=== PATIENT | female | born 1950 | race Caucasian/White ===

== ENCOUNTER 2016-08-06 01:44 | Inpatient (IN) | payer MEDICARE, OTHER ==
[~2016-08-06] VITALS: Ht 165.1 cm; Wt 65.6 kg
--- NOTE | ~2016-08-06 | CATH ---
Cardiac Diagnostic Report Demographics Patient Name MOY Huizar Gender Female Date of 1950 Age 66 year(s) Patient Number [id number] Date of Study 08/07/2016 Visit Number [id number] Room Number G6[address] [place] [id number] Ht 165.1 cm Wt 65.6 kg Referring Chema Rodriguez Primary Physician Physician Performing Marycruz Secondary Physician Physician Minnie TAYLOR Diagnostic [facility] Assisting Physician Physician Minnie TAYLOR Interventional Physician Home Health Specialist Physician Findings and Conclusions Diagnostic Findings and Conclusion 1. Single vessel CAD, ostial RCA UNDERWRITING MANAGER. 2. UNDERWRITING MANAGER of ostial RCA with robust collaterals from left system (known since 2006). 3. OM1 stent patent. Diagnostic Recommendations Continue current medications. Aggressive medical therapy for coronary artery disease. Dual Anti-platelet therapy for 1 year given NSTEMI with elevated cardiac enzymes. Smoking Cessation. Referral to Cardiac Rehabilitation after discharge . Hydration and followup creatinine. Patient has been instructed to not lift anything more than 5 pounds for 1 week. Procedure Description The patient was brought to the diagnostic cardiac catheterization-EP laboratory in the fasting, non-sedated state. Informed consent was obtained in the written and verbal form after the risks and benefits were explained. The patient had no further questions and agreed to proceed. The planned puncture-incision site(s) were shaved and prepped with ChloraPrep and draped in the usual sterile manner. Conscious sedation, supplemental oxygen, and pain control medications were delivered by a registered nurse under physician guidance. Surface ECG rhythm, blood pressure measurement, and pulse oximetry were monitored throughout the procedure. Arterial access. The access site was infiltrated with lidocaine. The vessel was entered with the Seldinger technique. A sheath was advanced into the vessel and used for catheter placement. Selective left coronary angiography. A catheter was advanced into the left coronary vessel ostium under Fluoroscopic guidance. Contrast was injected by hand. Images were obtained in multiple projections. Selective right coronary angiography. A catheter was advanced into the right coronary vessel ostium under fluoroscopic guidance. Contrast was injected by hand. Images were obtained in multiple projections. Left heart catheterization. A catheter was advanced across the aortic valve to the left ventricle under fluoroscopic guidance. Resting hemodynamics were obtained. Arterial artery hemostasis was achieved. The patient was transferred to a regular nursing floor via cart accompanied by a nurse. The patient left the laboratory in stable condition. Diagnostic Cath Status: Urgent Procedure Procedure Type Diagnostic procedure:Angiography:, Coronary Angios /[facility] Indications: Elevated cardiac enzymes and Non-ST elevation TX. The procedure was explained in detail to the patient. Risks, complications and alternative treatments were reviewed. Written consent was obtained. Medications Reviewed with Patient prior to Procedure. Angiographic Findings Dominance: Right Cardiac Arteries and Lesion Findings LMCA: Normal (0% Stenosis). LAD: Multiple stenosis.Diag small. Lesion on Prox LAD: Proximal subsection.20% stenosis . Lesion on 1st Diag: Ostial.30% stenosis . LCx: Aneurysmal.There is a previous stent on 1st Ob [place] showing wide patency. RCA: Chronic occlusion.Collaterals from left system fill back to mid RCA. Lesion on Prox RCA: Ostial.100% stenosis .Chronic total occlusion. Coronary Tree Procedure Data Procedure Date Date: 08/07/2016Start: 10:00 AMEnd: 10:20 AM Entry Locations - Retrograde Percutaneous access was performed through the Right Radial artery (Primary location). A 6 Fr sheath was inserted. Hemostasis was successfully obtained using Mechanical Compression. Closure Comments: 19 ml in R. Band by Sonam Tierney. . Procedure Medications Order and Administration + + + + + !Time !Medication !Dosage !Route ! + + + + + !08/07/2016 09:56 AM !Fentanyl !25 mcg !I.V. ! + + + + + !08/07/2016 10:01 AM !Fentanyl !25 mcg !I.V. ! + + + + + !08/07/2016 10:03 AM !Radial Verapamil !2.5 mg !I.A. ! + + + + + !08/07/2016 09:59 AM !Versed !1 mg !I.V. ! + + + + + !08/07/2016 10:05 AM !Heparin (ACC_3) !5000 units !I.V. bolus ! + + + + + !08/07/2016 10:09 AM !Oxygen !2 l/min !NC ! + + + + + Devices Used - A5 Fr. BS JR 4 Diag. Catheterwas used for:Right coronary angiography. - A5 Fr. BS JL 3.5 Diag. Catheterwas used for:Left coronary angiography. Contrast Material - Isovue 05880 ml Fluoroscopy Time: Diagnostic: 2:12 minutes. Total: 2:12 minutes. Fluoroscopy Dose: Diagnostic: 707 mGy. Total: 707 mGy. Estimated Blood Loss: 10 ml. Medical History Allergies - Sulfa. - Other:(sporanox). Risk Factors The patient risk factors include:prior PCI on 08/05/2006;cerebrovascular disease, physical activity, treated hypercholesterolemia, treated hypertension, insulin-treated diabetes mellitus, chronic lung disease, last creatinine: 0.6 mg/dl, creatinine clearance: 95.51 ml/min, dyslipidemia, renal failure, Current/Recent(w/in 1 year) tobacco use and prior [place] . Admission Data Admission Date: 08/06/2016 Admission Time: 02:30 AM Admit Source: Transfer acute care facility Insurance Payors: Medicare. Admission Medications + +------+-------+ + + + + !Medication!Dosage!Times !Last !Last !Administered !Comments ! ! ! !Per Day!Delivery !Delivery ! ! ! ! ! ! !Date !Time ! ! ! + +------+-------+ + + + + !Aspirin ! ! ! ! ! ! ! !(any) ! ! ! ! ! ! ! + +------+-------+ + + + + !Statin ! ! ! ! ! ! ! !(any) ! ! ! ! ! ! ! + +------+-------+ + + + + !ARB (any) ! ! ! ! ! ! ! + +------+-------+ + + + + Clinical Evaluation Leading to Procedure - The patient's CAD presentation was assessed as: Non-STEMI.The symptom onset was first noted on 08/06/2016 12:00 PM(time was estimated). - There were no anginal symptoms. Anti-anginal medications were prescribed during the past two weeks. The medication is: Ca channel Blockers. - The patient has been in a state of heart failure within the past two weeks. - The patient's heart failure status was assessed as NYHA Class III, with CHF symptoms of BEAL. Hemodynamics Condition: Rest O2 Consumption: Estimated: 154.61Heart Rate: 61 bpm Pressures (mmHg) +-----+ + !Site !Pressure ! +-----+ + !LV !143/7 ,18 ! +-----+ + !LV !141/7 ,18 ! +-----+ + !AO !136/64 (91) ! +-----+ + !LV !140/7 ,18 ! +-----+ + !AO !135/59 (88) ! +-----+ + !AO !11/-7 (-2) ! +-----+ + Valve Gradients and Areas + +---------+---------+---------+ +---------+ + !Valve !Peak !Mean !Area !Index !Flow !Source ! + +---------+---------+---------+ +---------+ + !Aortic !5 !9 ! ! ! ! ! + +---------+---------+---------+ +---------+ + !Aortic !5 !9 ! ! ! ! ! + +---------+---------+---------+ +---------+ + Shunts Oxygen Values O2 Capacity 189.04 O2 Consumption 154.61 Signatures dtt: MINNIE BUTLER dtd: 08/07/16 [facility] Physician Self Edit
--- NOTE | ~2016-08-06 | CON ---
PATIENT'S NAME: EDILMA WINTER [facility] AGE: 66 Y [address] ROOM: G6[address] [place], [place] [address] LOCATION: GPCU ADMIT DATE: 08/06/2016 Consultation DISCHARGE DATE: FAMILY PHYSICIAN: Sury Bear APRN ATTENDING PHYSICIAN: CHENG HUGGINS DATE OF CONSULTATION: 08/06/2016 REFERRING PHYSICIAN: BRENNA BUTLER MD CARDIOLOGY CONSULTATION REPORT REASON FOR CONSULTATION: Elevated troponin/non-STEMI. CHIEF COMPLAINT: Left-sided toothache/jaw pain and lethargy. HISTORY OF PRESENTING ILLNESS: The patient is a very pleasant, 66-year-old, who has known coronary artery disease status post PCI in the past several years ago by Dr. Magdaleno in 2006 to OM1 branch in setting of MA. She has not seen him recently though. The patient reports she has had three cardiac catheterizations and the last time about 10 years ago, she had a PCI done in 2006. She had OPTICAL TECHNICIAN of ostial RCA, stent to OM, collaterals to RCA. She really has not had any issues with her heart in the recent past. She has been battling with low back pain and had multiple surgeries for that. She was on narcotics. She also has been having complaints with left toothache in the recent past and has been trying to get in touch with her dentist. She takes 1 tablet of hydromorphone 32 mg in the morning and 4 tablets of Lortab a day. In the past few days, she has just been feeling very sleepy and drowsy, and she has not been sleeping well in the night though. She was feeling very tired and fatigued the night before admission, and her was having difficulty arousing her, and finally, she went to her local emergency room in [place] and she was difficult to arouse. She got Narcan and she did have significant improvement since that time. She is a very poor historian. However, she is awake and alert, and able to answer most of my questions appropriately this morning. Upon arrival to our ER, apparently, she had pinpoint pupils and they did improve after she got another dose of Narcan here. Her O2 sats were only 75% on the room air there. She uses 4 L of oxygen at night at home. She continues to smoke a pack per day. She has chronic bronchitis with yellow sputum production, but that is not worse than her usual and her cough is also similar. PATIENT'S NAME: EDILMA WINTER [facility] AGE: 66 Y [address] ROOM: [place] [address] LOCATION: GPCU ADMIT DATE: 08/06/2016 Consultation DISCHARGE DATE: FAMILY PHYSICIAN: Sury Bear APRN ATTENDING PHYSICIAN: CHENG HUGGINS She has not been having any fever or chills. Chest x-ray from the outside hospital showed bibasilar infiltrates that was read by the radiologist there. She was hypotensive when she came in here, and there was question about severe sepsis. She did have her left lower tooth pulled about two months ago and she has been having pain in that area. REVIEW OF SYSTEMS: A 10-point review of systems was discussed with the patient. Pertinent positives and negatives mentioned in the History of Presenting Illness. PAST MEDICAL HISTORY: 1. History of MA in the past and status post PCI about 10 years ago. s/p PCI of OM1 branch, OPTICAL TECHNICIAN of RCA ostial, with collaterals from left systtem 2. Hyperlipidemia. 3. Oxygen-dependent COPD. She is on 4 L of oxygen at night. 4. Hypertension. 5. Chronic low back pain. 6. Tooth pain. ALLERGIES: SULFA. HOME MEDICATIONS: Please review MAR. SOCIAL HISTORY: She smokes one pack per day for several years. She continues to do so. No illicit drug abuse or alcohol abuse. FAMILY HISTORY: No premature coronary artery disease or sudden cardiac . PAST SURGICAL HISTORY: 1. Appendectomy. 2. Multiple lower back surgeries. 3. Tooth extraction. PHYSICAL EXAMINATION: VITAL SIGNS: O2 saturations 94% on 2 L of oxygen. She is afebrile. Blood pressure is 130/80, heart rate is in the 90s, and respirations 16. Telemetry; normal sinus rhythm. GENERAL APPEARANCE: She is alert and oriented. She does answer questions appropriately. However, she is a poor historian. She is not in any apparent distress. HEENT: Extraocular movements are intact. Head is atraumatic. PATIENT'S NAME: EDILMA WINTER [facility] AGE: 66 Y [address] ROOM: [place] [address] LOCATION: GPCU ADMIT DATE: 08/06/2016 Consultation DISCHARGE DATE: FAMILY PHYSICIAN: Sury Bear APRN ATTENDING PHYSICIAN: CHENG HUGGINS NECK: Supple. No JVD. HEART: S1 and S2. Regular rate and rhythm. No murmurs, gallops, or rubs. RESPIRATORY: Decreased air exchange bilaterally. No crackles or wheezing. ABDOMEN: Obese. Soft. Bowel sounds positive. EXTREMITIES: No lower extremity edema. NEUROLOGIC: Grossly intact. Able to move all extremities against gravity. SKIN: Warm and dry. MUSCULOSKELETAL: No joint or muscle aches. IMAGING STUDIES: 1. EKG; normal sinus rhythm, intraventricular conduction delay with T-wave inversions in the inferior leads. 2. Echocardiogram; normal LV size and systolic function. LVEF of 60%. Normal wall motion, moderate mitral annular calcification, dilated IVC suggestive of elevated right atrial pressure, trivial TR, and no pericardial effusion. LABORATORY DATA: Her pH is 7.36, pCO2 of 55, pO2 of 72, and percent saturation of 94%. Upon arrival here, sodium 145, potassium 3.8, BUN 11, 0.7 is the creatinine, albumin 2.4, bilirubin 0.5, alkaline phosphatase 119, AST 163, ALT 80, and GFR greater than 60. LDL is 44, triglycerides are 61, and cholesterol is 94. CPK 3410, next at this morning 2766, CK-MB is 12.3 and 12.1, troponin 2.4 and 1.8, and proBNP is elevated at 4843. A1c is 7. Amylase 58, lipase 22. WBC 15.1, H and H are 14.5 and 44.5, and platelets are 198,000. She had a CT scan of her brain and that did not show any acute findings. IMPRESSION AND PLAN: 1. [id number] myocardial infarction with significantly elevated cardiac biomarkers with TWI in inferior leads. 2. Acute encephalopathy likely secondary to narcotic use that has resolved essentially after Narcan. 3. Chronic obstructive pulmonary disease with increased O2 requirement. 4. Congestive heart failure exacerbation. Mild volume overload with predominantly diastolic dysfunction and diastolic heart failure. 5. Questionable sepsis. She is on broad-spectrum antibiotics at this time. 6. Transaminitis. This could be secondary to congestive heart failure exacerbation as well as her acute coronary syndrome. I do agree with heparin for acute coronary syndrome protocol given her significantly elevated cardiac biomarkers and history of myocardial infarction in the past. I think given her significantly elevated cardiac enzymes and given her poor history, at this PATIENT'S NAME: EDILMA WINTER [facility] AGE: 66 Y [address] ROOM: G[address] [place], [place] [address] [facility] ADMIT DATE: 08/06/2016 Consultation DISCHARGE DATE: FAMILY PHYSICIAN: Sury Bear APRN ATTENDING PHYSICIAN: CHENG HUGGINS time, the best thing would probably be a cardiac catheterization to ensure she does not have any significant obstructive coronary artery disease given the clinical settings. Continue to optimize her medications in the interim. Risks and benefits were explained with the patient, and we will plan for catheterization in the morning. Hopefully, she does not have any other sepsis or other issues brewing. We will have hospitalist evaluate that as well and if okay, we will proceed with catheterization in the morning. Thank you very much for the consultation. BRENNA BUTLER MD AT/modl /[id number] d: 08/06/16 1407 t: 08/07/16 1209, CONSULTATION REPORT
--- NOTE | ~2016-08-06 | HP ---
PATIENT'S NAME: EDILMA WINTER [facility] AGE: 66 Y [address] ROOM: [id number] [place], [place] [address] LOCATION: GPCU ADMIT DATE: 08/06/2016 History & Physical DISCHARGE DATE: FAMILY PHYSICIAN: PHYSICIAN, UNKNOWN ATTENDING PHYSICIAN: CHENG HUGGINS DATE OF SERVICE: CHIEF COMPLAINT: Left toothache, hypotension, and lethargy. HISTORY OF PRESENT ILLNESS: This is a 66-year-old female who is a poor historian and I got the story from the patient and the patient's at the bedside. The story is that she has a chronic lower back pain with multiple surgeries in the past chronically dependent on hydromorphone and also hydrocodone. She usually takes 1 tablet of the hydromorphone extended release 32 mg in the morning and also 4 tablets of the hydrocodone 7.5/200 mg 4 times a day. She states she might have taken more than she needed for the left toothache and also on the chronic lower back pain, but she could not really tell me how many tablets did she take actually. She states she took the tablets sometime around noontime and after that, the patient is starting to feel sleepy and drowsy and around 10:30 p.m., the found the patient to be very lethargic and barely responsive and was not really talking. Because of the lethargy and not really talking, the patient was brought to the ER at the outside facility for evaluation. From the ER physician from the outside facility, he told me that the patient was very drowsy. The patient got IV Narcan 0.4 mg 1 dose and the patient actually woke up and is more alert and awake and answering questions, but still remains a poor historian. On arrival over there, physician over there told me that she had pinpoint pupils and has improved to normal size after the Narcan 1 dose 0.4 mg. Her saturation was at the 75% on room air over there. Chronically, the patient has COPD and uses 4 L nasal cannula only at night. The patient got a few doses of nebulization because the patient was wheezing over there, but the patient denies any cough or any worsening shortness of breath. At baseline, her COPD she does have a daily chronic cough consistent with chronic bronchitis with yellowish sputum, but she denies any worsening shortness of breath or worsening cough. She absolutely denies any chest pain, palpitation or syncope or presyncope. The patient got a few nebulizations from the outside facility because of the wheezing and blood pressure on arrival over there was in the soft 100 and had around 1.5 L normal saline and the blood pressure improved to the 120s systolic. MAP was always more than 65. The patient also received nebulization and was feeling better afterwards. Chest x-ray from the outside facility physician mentioned that probably has some bibasilar infiltrate, but it was not compared to the prior chest x-ray and it was read by the physician, not by the radiologist. Outside PATIENT'S NAME: EDILMA WINTER [facility] AGE: 66 Y [address] ROOM: [address] [address] [facility] ADMIT DATE: 08/06/2016 History & Physical DISCHARGE DATE: FAMILY PHYSICIAN: PHYSICIAN, UNKNOWN ATTENDING PHYSICIAN: CHENG HUGGINS facility physician was concerned about severe sepsis with borderline hypotension in the setting of left toothache concerning for tooth abscess and also concerning for COPD exacerbation due to her wheezing. The patient was sent over here for further evaluation. The patient states that she had her left lower tooth pulled out about 2 months ago and has been having pain in that area for the last 2 months. She was put on clindamycin by her dentist, just started today, but the dentist has not seen the patient and is scheduled to see her sometime next week. She states that her left toothache is still there. REVIEW OF SYSTEMS: As mentioned in history of present illness. All other systems reviewed negative except those mentioned in history of present illness. PAST MEDICAL HISTORY: Per medical records, and per the patient, the patient has had: 1. History of myocardial infarction x3 in the past. Last time she had a myocardial infarction was many, many years ago according to the patient. The patient could not remember the exact year. The patient says that she was seen by Dr. Magdaleno in the past, but she could not remember all the details and she does not recall when was the last office visit. She states she has had one stent placed in the heart, but not sure when was that and not sure through which artery. She has not had a chest pain for a long time. 2. Hyperlipidemia. 3. COPD, on 4 L nasal cannula at night. 4. Hypertension. 5. Chronic lower back pain. 6. The patient denies any other past medical history. ALLERGIES: SULFA, BUT THE PATIENT COULD NOT REMEMBER WHAT REACTION. HOME MEDICATIONS: Will be reconciled in the morning with the pharmacy because the patient does not remember. SOCIAL HISTORY: The patient is active cigarette smoker about 1 pack per day for many years. The patient denies any alcohol or any illegal drug use. FAMILY HISTORY: Father from pneumonia at advanced age. Mother is healthy and alive according to the patient. She denies any coronary artery disease in the PATIENT'S NAME: EDILMA WINTER [facility] AGE: 66 Y [address] ROOM: [place] [address] [facility] ADMIT DATE: 08/06/2016 History & Physical DISCHARGE DATE: FAMILY PHYSICIAN: PHYSICIAN, UNKNOWN ATTENDING PHYSICIAN: CHENG HUGGINS. PAST SURGICAL HISTORY: 1. Status post cardiac stent x1 many years ago. 2. Status post appendectomy. 3. Status post multiple lower back surgery for chronic lower back pain. PHYSICAL EXAMINATION: VITAL SIGNS: Saturation 94% on 4 L nasal cannula, temperature 98, blood pressure 120/80, heart rate 90, respirations 16. GENERAL APPEARANCE: Alert and oriented x3. Answering questions appropriately, but is a poor historian. No acute distress. HEENT: Pupils are equally round and reactive to light. Extraocular muscles intact. Anicteric sclerae. Nasal turbinates are normal bilaterally. Moist oral mucosa. NECK: No JVD. CARDIOVASCULAR: Regular rate and rhythm. Normal S1, S2. No murmur, no rubs, no gallops. RESPIRATORY: Diffuse wheezing. No crackles, no rhonchi, no rales. ABDOMEN: Obese, soft, nontender, nondistended, normal bowel sounds, no hepatosplenomegaly. Bowel sounds are present. EXTREMITIES: No edema in upper or lower extremities. NEUROLOGICAL: Grossly nonfocal. SKIN: She does have Candidal intertrigo in bilateral groin area and below the right breast. She also has a small laceration and excoriation on the left frontal area of the head. She states she had a fall about 2 days ago, but she denies any loss of consciousness. NEUROLOGICAL: Grossly nonfocal. MUSCULOSKELETAL: No joint pain. No muscle pain. Range of motion intact. LABORATORY DATA: ABGs on 4 L nasal cannula showed pH of 7.35, pCO2 55, pO2 72, saturation 94%, and bicarbonate 31.1. Lactic acid 0.7, CPK 3410. Troponin 2.470. CK-MB 12.3, white blood cells 14.1, hemoglobin 14.4, hematocrit 44.1, platelets 204, glucose 150, BUN 14, creatinine 0.8. Sodium 142, potassium 3.2, chloride 108, carbon dioxide 26, calcium 7.9. Total protein 6.6, albumin 2.4, AST 190, ALT 87, alkaline phosphatase 114, total bilirubin 0.6, direct bilirubin 0.3, anion gap 11.2, GFR more than 60. Globulin 4.2, A1c 7.0, INR 1.14, PTT 34. CK-MB 12.3. Procalcitonin pending. EKG on admission here on August 06, 2016, at 3:34 a.m., heart rate of 78 sinus rhythm. There is T-inversion in the inferior leads and leads III. No prior EKG for comparison. No ST elevation and no ST depression. IA 182 milliseconds, QRS 109 milliseconds, QTc 441 milliseconds. Again, no prior EKG for comparison. PATIENT'S NAME: EDILMA WINTER [facility] AGE: 66 Y [address] ROOM: [place] [address] [facility] ADMIT DATE: 08/06/2016 History & Physical DISCHARGE DATE: FAMILY PHYSICIAN: PHYSICIAN, UNKNOWN ATTENDING PHYSICIAN: CHENG HUGGINS Chest x-ray has just been ordered. Chest x-ray from an outside facility will be requested to push to PAC. CT of the brain without contrast and also CT of the soft tissue and the neck to evaluate tooth abscess currently is pending and has been taken right now. ASSESSMENT AND PLAN: 1. Regarding her acute encephalopathy: Likely from narcotic induced. The patient did improve after Narcan one dose from outside facility. For now, the patient is alert and awake. I am not going to give more Narcan. I will hold the narcotics for now and reassess in the morning. To prevent narcotic withdrawal, it can be reintroduced slowly at the lower dose to prevent withdrawal, but for now, she is just waking up from the Narcan. I will hold her narcotics for now. Home medications will be addressed in the morning because it has to be verified with the pharmacy. 2. Regarding her chronic obstructive pulmonary disease exacerbation: Questionable pneumonia. X-ray will be taken right now. She does have wheezing. I will treat her with IV Levaquin since she came from home for CAP coverage. Continue with nebulization with Xopenex and Atrovent and also Xopenex p.r.n. We will be getting steroids, getting IV Solu- Medrol 125 mg IV x1 right now and then prednisone 40 mg b.i.d. We will be getting a urine antigen and Legionella for pneumococcal. Get a sputum culture and gram stain. We will also be checking an influenza nasal antigen swab. X-rays will be performed and will be read by our radiologist in the morning. 3. Regarding her troponin elevation: The patient does have elevation of troponin and CPK and CK-MB. The patient has a history of 3 myocardial infarction in the past many years ago. She had one stent in the heart placed many years ago according to the patient. The patient is a poor historian, cannot even tell me much information. The patient states she had been seen by Dr. Magdaleno in the past, but could not remember when was the last visit. The patient is chest pain-free. I will treat her with [id number] elevation myocardial infarction because she does have a T inversion on the inferior leads, but no prior EKG for comparison. Treat her with IV heparin bolus followed by drip with ACS protocol and also Lipitor 80 mg p.o. now and then daily and aspirin full dose, not on 81 mg daily and also if she has chest pain, we will start nitroglycerin drip. I will not give the beta-omaira, because her blood pressure was soft on arrival. I will also be getting an echo in the morning and also cycle enzymes every 6 hours. EKG in the morning again. ProBNP will be checked in the morning again. Consult Dr. Magdaleno because Dr. Magdaleno has seen the patient before. I will consult Cardiology in the morning. N.p.o. for the patient, in case the patient PATIENT'S NAME: EDILMA WINTER [facility] AGE: 66 Y [address] ROOM: [place] [address] [facility] ADMIT DATE: 08/06/2016 History & Physical DISCHARGE DATE: FAMILY PHYSICIAN: PHYSICIAN, UNKNOWN ATTENDING PHYSICIAN: CHENG HUGGINS will require stress test or cardiac cath. Pending cardiology evaluation in the morning. 4. Regarding her possible severe sepsis with hypotension from possible and questionable left tooth abscess: I will be getting a CT of the head without contrast, because she fell 2 days ago and also I will be getting a CT of the face with a soft tissue and neck to rule out left tooth abscess or infection. I will cover her empirically with IV Unasyn, which is good coverage for dental abscess and soft tissue infection. IV Unasyn will be given 3 g IV every 6 hours. Further plan depends on the CT report. We will be giving her Florastor 250 mg p.o. b.i.d. to prevent Clostridium difficile colitis from antibiotics. 5. Regarding her transaminitis: We will trend the liver function tomorrow again. No pain in the abdomen. A1c is high with 7.0, which made her diabetic: She denies any diabetes. This could be new onset. I will put her n.p.o. right now because the cardiac enzymes are high. We will give her subcu regular insulin low dose q.6 hours and titrate as necessary. 6. Regarding her hypokalemia: Replace with p.o. potassium to keep potassium more than 4. We will check her magnesium to keep it above 2. I will also be checking a urine drug screen because she was lethargic to make sure there is no illegal drugs taken. 7. Deep vein thrombosis prophylaxis: She will be on heparin drip. 8. She is a DO NOT RESUSCITATE/DO NOT INTUBATE. Time spent on the day of admission 50 minutes including chart review, interviewing the patient, talking to the patient, examining the patient, and addressing all the questions and concerns the patient had and went over the plan of care in detail with the patient and the patient's . Further plan depend son clinical course and by medical provider who will be taking over the care on 08/06/16 at 8 AM when shift changes. CHENG HUGGINS MD CC/wesly /[id number] T: [id number] HISTORY & PHYSICAL
--- NOTE | ~2016-08-06 | ECHO ---
Transthoracic Echocardiography Report (TTE) Demographics Patient Name EDILMA WINTER Date of Study 08/06/2016 Patient Number [id number] Visit Number [id number] Date of 1950 Room Number G6306 Accession Number [id number] Gender Female Age 66 year(s) Referring Lita Kaur MD Pigment And Lacquer Mixer Apurva Moe [facility] Physician Matthew Hudson Physician Interpreting Sharla Balbuena Contact Lens Assistant Physician Supervising Ordering Physician Lita Kaur MD, MD/P Nurse Stress Building Maintenance Custodian Conclusions Contractility Score Summary Normal Left Ventricular contractility was noted. Summary The estimated left ventricular ejection fraction is 60% with normal WM.The left ventricle is normal in size .Mild to moderate concentric left ventricular hypertrophy. Moderate mitral annular calcification. The aortic valve is moderately sclerotic. Dilated IVC with poor inspiratory collapse consistent with elevated RA pressure. Trivial tricuspid regurgitation by color Doppler. Procedure Type of Study TTE procedure:2D Echocardiogram, M-Mode, Doppler , Color Doppler. Procedure Date Date: 08/06/2016 Start: 07:09 AM Study Location: Inpatient Portable Technical Quality: Adequate visualization Indications:Elevated Troponin and Coronary artery disease. Appropriate Use Criteria: 9 Patient Status: Routine HR: 72 bpm BP: 116/63 mmHg M-Mode/2D Measurements LV Diastolic Dimension: 3.95 cm LV Systolic Dimension: 2.69 cm LV Septum Diastolic: 1.32 cm LV PW Diastolic: 1.27 cm AO Root Dimension: 2.4 cm Cardiac Output: 5.16 l/min LA Dimension: 60 cm LVOT: 1.8 cm LVOT VTI: 28.2 cm RV Base: 4.27 cm LV Stroke volume: 71.72 ml RV Length: 5.98 cm TAPSE: 2.56 cm TDI-S': 12.7 cm/s Doppler Measurements AV Peak Velocity: 2.22 m/s MV Peak E-Wave: 0.77 m/s AV Peak Gradient: 19.71 mmHg MV Peak A-Wave: 0.99 m/s AV Mean Gradient: 12 mmHg MV E/A Ratio: 0.78 LVOT Peak Velocity: 1.23 m/s MV Deceleration Time: 180 msec TR Velocity:1.68 m/s PV Peak Velocity: 1.14 m/s TR Gradient:11.29 mmHg PV Peak Gradient: 5.2 mmHg Estimated RAP:15 mmHg Estimated PASP: 26.29 mmHg Estimated RVSP: 26 mmHg A' Septal Velocity: 0.07 m/s E' Septal Velocity: 0.06 m/s A' Lateral Velocity: 0.1 m/s E' Lateral Velocity: 0.07 m/s Findings Left Ventricle The left ventricle is normal in size .Mild to moderate concentric left ventricular hypertrophy.LVEF:60%.Normal WM. Right Ventricle Normal right ventricle structure and function. Left Atrium Normal left atrial size. Right Atrium Normal right atrial size. Dilated IVC with poor inspiratory collapse consistent with elevated RA pressure. Mitral Valve Moderate mitral annular calcification. Calcified posterior mitral valve leaflet. Aortic Valve The aortic valve is moderately sclerotic. Tricuspid Valve Trivial tricuspid regurgitation by color Doppler. Pulmonic Valve Trivial pulmonic valve regurgitation by color Doppler. Pericardial Effusion No evidence of pericardial effusion. Miscellaneous Visualized portions of the aortic root and ascending aorta appear normal in size. Pleural Effusion No evidence of pleural effusion. Contractility Score LV regional wall motion:(0-Non visualized 1-Normal 2-Hypokinesis 3-Akinesis 4-Dyskinesis 5-Aneurysm) Signature dtt: Esha Magdaleno dtd: 08/06/16 0709 Physician Self Edit
--- NOTE | ~2016-08-06 | DS ---
PATIENT'S NAME: [facility] AGE: 66 Y [address] ROOM: [place] [address] LOCATION: GPCU ADMIT DATE: 08/06/2016 Discharge Summary DISCHARGE DATE: 08/07/2016 FAMILY PHYSICIAN: Sury Bear APRN ATTENDING PHYSICIAN: Jason London ATTENDING PHYSICIAN: Mark Harrell MD FINAL DIAGNOSES: 1. Altered mental status, resolved. 2. Non-ST elevation myocardial infarction. 3. status post catheterization. 4. Chronic back pain. 5. Chronic lung opacity. 6. Chronic obstructive pulmonary disease exacerbation. 7. Acute hypoxic respiratory failure, resolved. 8. Diabetes mellitus. 9. Hypertension. 10. Acute on chronic diastolic congestive heart failure. 11. Left tooth abscess. CONSULTATIONS: 1. Maxillofacial surgery, Dr. Mcbride. 2. Cardiology, Dr. Cardenas. PROCEDURES: Left heart catheterization with Dr. Cardenas. REASON FOR ADMISSION: This is a 66-year-old female, who was brought in for left toothache, hypotension, and lethargy. The patient was evaluated in the ER and was thought to have NSTEMI and acute encephalopathy, likely narcotic induced. Please see Dr. London's admission H and P for further details. DIAGNOSTIC STUDIES: Transthoracic echocardiogram was done during this admission, that showed normal left ventricular contractility, ejection fraction of 60% with normal wall motion, left ventricle normal in size, mild to moderate concentric left ventricular hypertrophy noted with moderate mitral annular calcification, aortic valve is moderately sclerotic, dilated IVC with poor inspiratory collapse consistent with elevated RA pressure was detected, trivial tricuspid regurgitation was noted. The patient underwent heart catheterization with Dr. Cardenas, that showed single-vessel CAD, ostial RCA CLAIMS ASSISTANT. CLAIMS ASSISTANT of the ostial RCA with robust collaterals from left system were noted and were known since 2006. OM1 stent was patent. Medical management with dual- antiplatelet therapy for 1 year was recommended. ABG was done on admission showed a pH of 7.36, pCO2 of 55, pO2 of 72, lactate PATIENT'S NAME: [facility] AGE: 66 Y [address] ROOM: [place] [address] LOCATION: GPCU ADMIT DATE: 08/06/2016 Discharge Summary DISCHARGE DATE: 08/07/2016 FAMILY PHYSICIAN: Sury Bear TRANSPORTATION ENGINEERING TECHNICIAN ATTENDING PHYSICIAN: Jason London 0.7 on admission, subsequently was 2.3. Serial Accu-Cheks were done and were in the range of 105 to 167. CPK elevated 3410 on admission, subsequently was trending down and was 1141. Troponin I 2.47 on admission and subsequently was 1.06. ProBNP 4843. Serial CBCs were done. White count was 14.1 on admission. She was placed on broad-spectrum antibiotics. White count at the time of discharge was stable at 13.4, hemoglobin, hematocrit, and platelet levels were within normal range. Serial CMPs showed essentially normal electrolytes. Her potassium was 3.2 on admission, was supplemented potassium, on the day of discharge was 3.3, and was supplemented prior to discharge. Kidney function tests were normal. Liver function tests showed elevated AST 190 on admission, 163 at discharge; ALT 87 on admission, 88 on discharge; total bilirubin level was within normal range. Hemoglobin A1c 7.0. Lipid panel was done showed a total cholesterol 94, triglycerides 61, HDL 38, LDL 44. The patient was placed on a heparin drip briefly, and that was monitored with PTT levels. INR 1.14 on admission and 1.25 subsequently. UA showed few bacteria and moderate wbc clumps. Urine drug screen was positive for barbiturates and opiates. Procalcitonin level 7.9 and subsequently was 8.17. Influenza A and B tests were negative. CK-MB 12.3, and subsequently was trending down to 9.2. Acetaminophen level less than 2.0, salicylate level seven 7.[address] head with no contrast was done for lethargy on admission and showed normal CT scan of the head, right maxillary sinus with inspissated mucus was noted. The patient had lower tooth abscess on the left side, and CT neck with contrast was done and showed no soft tissue abscess, equivocal evidence for left posterior bone abnormality at mandible was noted. The patient underwent repeat chest x-ray for dyspnea, and that showed a history of COPD and likely chronic bronchitis but no acute findings. CT chest PE protocol was done and showed no PE, patchy ground-glass opacities in the upper and lower lobes were noted. Differential included inflammatory process or pneumonitis and allergic alveolitis, likely also chronic lung process. Findings were also seen on the previous CT chest. The patient underwent CT abdomen and pelvis with contrast for increased LFTs, and that showed patchy ground-glass opacities in the lower lungs, cholelithiasis without ductal dilatation was noted, otherwise, negative upper abdomen. Negative lower abdomen and pelvis with the uterus surgically absent were detected. Urine Legionella antigen in urine negative. Strep pneumo antigen in urine negative. Urine culture showed contaminant and was negative. Blood culture showed no growth. HOSPITAL COURSE: This is a 66-year-old female, who presented with lethargy, altered mental status, and left toothache and hypotension. The patient was admitted for further evaluation and management. For her lethargy and acute encephalopathy, this was likely thought to be narcotic induced. The patient's PATIENT'S NAME: [facility] AGE: 66 Y [address] ROOM: [id number] [place], [place] [address] LOCATION: GPCU ADMIT DATE: 08/06/2016 Discharge Summary DISCHARGE DATE: 08/07/2016 FAMILY PHYSICIAN: Sury Bear APRN ATTENDING PHYSICIAN: Jason London narcotics were held. She woke up subsequently. She was following all commands. The patient had a history of chronic obstructive pulmonary disease. This was thought to be likely exacerbation. CT chest PE protocol was negative. She was treated with IV Levaquin and also given breathing treatments. She was also given steroid doses during this admission. Sputum culture was to be obtained, but could not be obtained since the patient did not bring up much sputum. Influenza test was negative. The patient had NSTEMI. Cardiology was consulted. She underwent catheterization and findings are as above. Medical management was then recommended. The patient did not receive any stents. The patient also had a left tooth abscess. Her white count was elevated. She was also slightly hypotensive. She responded to a fluid challenge. Dr. Mcbride was consulted after a CT neck was done. Dr. Mcbride recommended follow up with a dentist. The patient was placed on antibiotics for her toothache. The patient has transaminitis. This was likely secondary to cholelithiasis. CT abdomen and pelvis was done and findings are as above. The patient was also hypokalemic during this admission and was supplemented with potassium. The patient was recommended further stay in the hospital; however, she was very anxious and was refusing all treatment. She had also refused her cath but was later convinced by her to undergo cardiac catheterization. Since the patient was refusing all treatments and therapies, she was discharged and asked to follow up with her primary care physician. The patient was doing well at the time of discharge and tolerating p.o. and ambulating. DISCHARGE INSTRUCTIONS: The patient discharged on a cardiac diet. The patient to follow risk precautions for her catheterization. Follow up with dentist of choice in 2-3 days' time. Follow up with Sury Bear in [place] in 2 to 3 days time on Wednesday08/10/2016. PCP to check a CBC and a BMP. Accu- Cheks a.c. and h.s. advised. Regular BP check advised. Follow up with dentist in 2 to 3 days for tooth extraction. Follow up ER if fever, dyspnea, or pain returns or worsens. O2 as needed to keep sats 88%-95%. The patient uses just 2-3 L O2 at h.s. and p.r.n. during the day. She has home O2. DISCHARGE MEDICATIONS: 1. Clindamycin 300 mg p.o. q.6 hours for 7 days. 2. Aspirin 81 mg p.o. daily. 3. Catapres 0.1 mg p.o. q.h.s. 4. Plavix 75 mg p.o. daily. 5. Diltiazem ER 120 mg p.o. b.i.d. PATIENT'S NAME: [facility] AGE: 66 Y [address] ROOM: [place] [address] [facility] ADMIT DATE: 08/06/2016 Discharge Summary DISCHARGE DATE: 08/07/2016 FAMILY PHYSICIAN: Sury Bear APRN ATTENDING PHYSICIAN: Jason London 6. Guaifenesin 400 mg p.o. b.i.d. 7. Lamictal 300 mg p.o. q.h.s. 8. Cozaar 50 mg p.o. daily. 9. Singulair 10 mg p.o. q.a.m. 10. Fosamax 70 mg p.o. q.7 day every Wednesday night. 11. Multivitamin 1 tablet p.o. daily. 12. Potassium chloride 20 mEq p.o. q.h.s., PCP to manage based on BMP. 13. Os-Emile with D 1 tablet p.o. daily. 14. Primidone 250 mg p.o. b.i.d. 15. Lyrica 150 mg p.o. daily. 16. Crestor 40 mg p.o. daily. 17. Zoloft 100 mg p.o. q.h.s. 18. Florastor 250 mg p.o. b.i.d. for 10 days. 19. Demadex 20 mg p.o. daily. 20. Symbicort 160/4.5 mg inhalation 2 puffs inhalation twice daily. 21. Vitamin B complex 1 tablet p.o. daily. 22. Nitrostat 0.4 mg sublingual as needed p.r.n. chest pain. 23. Oxygen, uses 2-3 L O2 at h.s. and p.r.n. during the day, keep sats 88%- 95%. 24. Hydrocodone and ibuprofen 2 tabs p.o. daily per home regimen. 25. Allergy Relief loratadine 10 mg p.o. daily. 26. Levaquin 500 mg p.o. daily for 5 days. 27. Prednisone 20 mg p.o. b.i.d. for 2 days, then prednisone 10 mg p.o. b.i.d. for 2 days, and prednisone 5 mg p.o. b.i.d. for 2 days, then prednisone 5 mg p.o. daily for 2 days, then stop prednisone, stop date 08/15/2016. 28. During this admission, the patient's narcotic medications were stopped secondary to lethargy and altered mental status. Antibiotics and steroid taper were added during this admission. MARK HARRELL MD MT/wesly /[id number] CC: Sury Bear APRN d: 08/11/16 0357 t: 08/23/16 1530, DISCHARGE SUMMARY
[~2016-08-06 01:44] MED LIST: ASPIRIN EC81 MG PO; CATAPRES0.1 MG PO; CRESTOR40 MG PO; DEMADEX20 MG PO; DILTIAZEM ER120 MG PO; FOSAMAX70 MG PO; HYDROCODONE-IB1 EAC3 PO; KLOR-CON M2020 MEQ PO; LAMICTAL150 MG PO; LOSARTAN POTASS50 MG PO; LOVAZA1 GM PO; LYRICA 150MG C150 MG PO; MOBIC7.5 MG PO; MYSOLINE250 MG PO; NITROSTAT0.4 MG SL; OSCAL + D500 MG PO; OXYGEN M-15 INH; SINGULAIR10 MG PO; SUPER B COMPLE150 MG PO; SYMBICORT 16010.2 GM INH; THERAGRAN-M1 TAB PO; ZOLOFT100 MG PO; [UNRECOGNIZED DRUG - OTHER] PO
--- NOTE | 2016-08-06 03:10 | NUR ---
Patient arrives via [facility] from [facility] with diagnosis of lethargy. According to he tried to wake the patient and patient was unarousable so he called EMS. Patient was supposed to go to the dentist to have a tooth pulled but was placed on antibiotic first. Patient arrives very lethargic and unable to answer questions. Patient has bruising and scabs scattered throughout her body. Patient placed on 4L/NC per stating that is her home dose. Hypotensive SBP 85-92. in room for evaluation and to obtain history from .
[2016-08-06 03:22] LABS: BICARBONATE 31.1 mmol/L (18.0-23.0); LACTATE 0.7 mEq/L (0.50-1.60); PCO2 55 mmHg (35-45); PO2 72 mmHg (80-90)
[2016-08-06 03:39] LABS: BASOPHIL % 0.1 %; HEMATOCRIT 44.1 % (33.0-46.0); HEMOGLOBIN 14.4 g/dL (10.0-15.0); IMMATURE GRANULOCYTE # 0.1 K/uL (0.0-0.3); IMMATURE GRANULOCYTE % 0.5 %; MCH 31.8 pg (27.0-34.0); MCHC 32.7 gm/dL (32.0-36.5); MCV 97.4 fl (83.0-98.0); MONOCYTE # 0.8 K/uL (0.0-1.0); MONOCYTE % 5.5 %; MPV 10.2 fl (9.4-12.4); NEUTROPHIL # (ANC) 12.2 K/uL (1.8-7.8); NEUTROPHIL % 86.9 %; NRBC % 0.1 /100WBC (0-0.00); PLATELET COUNT 204 K/uL (150-450); RBC 4.53 M/uL (3.50-5.50); RDW-CV 14.5 % (11.9-14.6); WBC 14.1 K/uL (4.0-11.0)
[2016-08-06 03:50] LABS: INR - (THERAPEUTIC) 1.14 (0.92-1.07); PTT 34 SECONDS (25-32)
[2016-08-06 04:01] LABS: ALBUMIN 2.4 gm/dL (3.5-5.0); ALK PHOS 114 IU/L (33-138); ALT 87 IU/L (12-78); ANION GAP 11.2 (10.0-19.0); AST 190 IU/L (10-40); BLOOD UREA NITROGEN 14 mg/dL (6-24); CALCIUM 7.9 mg/dL (8.5-10.5); CHLORIDE 108 mMol/L (96-110); CO2 26 mMol/L (22-32); CREATININE 0.8 mg/dL (0.5-1.1); ESTIMATED GFR (MDRD EQUATION) > 60; POTASSIUM 3.2 mMol/L (3.7-5.1); SODIUM 142 mMol/L (135-145); TOTAL BILIRUBIN 0.6 mg/dL (0.0-1.5); TOTAL PROTEIN 6.6 g/dL (6.0-8.4)
[2016-08-06 04:14] LABS: CPK 3410 IU/L (21-215)
[2016-08-06 06:13] LABS: BILIRUBIN URINE NEGATIVE (NEGATIVE); BLOOD URINE 50 /UL (NEGATIVE); COLOR URINE YELLOW (YELLOW); GLUCOSE URINE NEGATIVE (NEGATIVE); KETONE URINE NEGATIVE (NEGATIVE); LEUKOCYTES URINE 100 /UL (NEGATIVE); NITRITE URINE NEGATIVE (NEGATIVE); PROTEIN URINE 30 mg/dL (NEGATIVE); TURBIDITY URINE 1+ (CLEAR); UROBILINOGEN URINE NORMAL (NORMAL)
[2016-08-06 06:24] LABS: EPITHELIAL URINE 0-2 #/HPF (NEGATIVE); WBC URINE 20-50 #/HPF (NEGATIVE)
[2016-08-06 06:25] LABS: BACTERIA URINE FEW (NEGATIVE); WBC CLUMPS URINE MODERATE (NEGATIVE)
[2016-08-06 06:32] LABS: BARBITURATE POSITIVE (NEGATIVE); COCAINE NEGATIVE (NEGATIVE)
[2016-08-06 06:34] LABS: AMPHETAMINE NEGATIVE (NEGATIVE); OPIATES POSITIVE (NEGATIVE)
--- NOTE | 2016-08-06 07:04 | NUR ---
Significant Event:PATIENT MORE ALERT THROUGHOUT THE MORNING. CARDIAC ENZYMES ELEVATED. CT OF HEAD NEGATIVE SO HEPARIN GTT STARTED PER [facility] PROTOCOL. CARDIO CONSULT WITH TODAY. ECHO THIS AM. STARTED IV ATB. NS @ 75ML/H. Follow up:AM LABS AND CONTINUE PLAN OF CARE.
[2016-08-06 08:45] LABS: BASOPHIL % 0.1 %; HEMATOCRIT 44.5 % (33.0-46.0); HEMOGLOBIN 14.5 g/dL (10.0-15.0); IMMATURE GRANULOCYTE # 0.1 K/uL (0.0-0.3); IMMATURE GRANULOCYTE % 0.5 %; LYMPHOCYTE # 0.9 K/uL (0.8-4.0); LYMPHOCYTE % 6.2 %; MCH 31.8 pg (27.0-34.0); MCHC 32.6 gm/dL (32.0-36.5); MCV 97.6 fl (83.0-98.0); MONOCYTE # 1.1 K/uL (0.0-1.0); MONOCYTE % 7.3 %; MPV 10.5 fl (9.4-12.4); NEUTROPHIL % 85.9 %; NRBC % 0.1 /100WBC (0-0.00); PLATELET COUNT 198 K/uL (150-450); RBC 4.56 M/uL (3.50-5.50); RDW-CV 14.6 % (11.9-14.6); WBC 15.1 K/uL (4.0-11.0)
[2016-08-06 09:02] LABS: INR - (THERAPEUTIC) 1.25 (0.92-1.07); PROTIME 13.2 SECONDS (9.8-11.4)
[2016-08-06 09:04] LABS: ALBUMIN 2.4 gm/dL (3.5-5.0); ALK PHOS 119 IU/L (33-138); ALT 80 IU/L (12-78); ANION GAP 10.8 (10.0-19.0); AST 163 IU/L (10-40); BLOOD UREA NITROGEN 11 mg/dL (6-24); CHLORIDE 109 mMol/L (96-110); CO2 29 mMol/L (22-32); CREATININE 0.7 mg/dL (0.5-1.1); ESTIMATED GFR (MDRD EQUATION) > 60; MAGNESIUM 2.1 mg/dL (1.8-2.6); POTASSIUM 3.8 mMol/L (3.7-5.1); SODIUM 145 mMol/L (135-145); TOTAL PROTEIN 6.7 g/dL (6.0-8.4)
[2016-08-06 09:05] LABS: PTT 95 SECONDS (25-32)
[2016-08-06 09:12] LABS: TOTAL BILIRUBIN 0.9 mg/dL (0.0-1.5)
[2016-08-06] MEDS ORDERED: HYDROCODONE-IB1 EAC3 PO (09:22)
[2016-08-06] MEDS ORDERED: CLEOCIN150 MG PO (09:30)
[2016-08-06] MEDS ORDERED: PREMARIN0.45 MG PO (09:30)
[2016-08-06] MEDS ORDERED: ALLERGY RELIEF10 M1 PO (09:31)
[2016-08-06] MEDS ORDERED: MUCUS RELIEF400 MG PO (09:31)
[2016-08-06] MEDS ORDERED: TRIPLE FLEX CA1 EACH PO (09:31)
[2016-08-06] MEDS ORDERED: CVS OMEGA-3 KR1 EAC1 PO (09:39)
--- NOTE | 2016-08-06 12:09 | NUR ---
Introduced self and CM role to Paulette and her who was at bedside. Paulette tells me that she lives at home in [place] and it is her plan to return there when able. She doesn't use any assistive device, such as a FWW to get around with at baseline. She does tell me she has one to use if she should need to. Paulette reports that she does her own medications at home and plans to continue this. No questions, needs or concerns about returning home upon dismissal. tells me that he will transport her there when medically cleared. CM to continue to follow and assist. Plan home.
--- NOTE | 2016-08-06 17:35 | NUR ---
Significant Event: Patient answers orientation questions appropriately, but gives inconsistent answers to other questions and is a poor historian. Up with bedside commode with 1A. Very high fall risk. Vital signs stable on 1L. Continued IV antibiotics. Cardiac enzymes trending down. NPO after midnight for heart catheterization in A.M. LFA PIV X 2. Heparin gtt at 900 units/h with next PTTHP at 2130. NS infusing at 75 ml/h. Gave 1 dose of IV lasix and to give second dose at 1999. Miranda intact to dependent drainage. ACHS Follow up: Continue as per plan of care. Heart catheterization at 1000 in A.M. To increase IVF to 100 ml/h at 0600 and stop heparin gtt at 0800
[2016-08-07 04:37] LABS: BASOPHIL % 0.1 %; HEMOGLOBIN 13.9 g/dL (10.0-15.0); IMMATURE GRANULOCYTE # 0.1 K/uL (0.0-0.3); IMMATURE GRANULOCYTE % 0.4 %; LYMPHOCYTE # 1.2 K/uL (0.8-4.0); LYMPHOCYTE % 8.7 %; MCH 32.7 pg (27.0-34.0); MCHC 33.9 gm/dL (32.0-36.5); MCV 96.5 fl (83.0-98.0); MONOCYTE # 0.7 K/uL (0.0-1.0); MONOCYTE % 4.9 %; MPV 10.5 fl (9.4-12.4); NEUTROPHIL # (ANC) 11.5 K/uL (1.8-7.8); NEUTROPHIL % 85.9 %; NRBC % 0 /100WBC (0-0.00); PLATELET COUNT 212 K/uL (150-450); RBC 4.25 M/uL (3.50-5.50); RDW-CV 14.4 % (11.9-14.6); WBC 13.4 K/uL (4.0-11.0)
--- NOTE | 2016-08-07 04:44 | NUR ---
Patient is alert but forgetful throughout this shift. Forgets year of occasionally with medication admin. States still has jaw pain. Up to beside commode x1, unsteady on feet, 2 assist needed. Has large BM. Heparin running at 1000 units an hour. VSS on 2L O2, home dose of O2 is 2.5L N/C. Cardiac enzymes trending down. Intermittent IV antibiotics given. To have heart cath today at 1000. NPO after midnight. Will need CHG bath in AM. Sputum culture not obtained, patient is not having productive cough. Miranda in place with 1175 output. States she has been falling frequently at home because she does not get adequate sleep. NS infusing at 100ml/hr. Heparin to be off at 0800 prior to surgery.
[2016-08-07 04:49] LABS: ANION GAP 11.4 (10.0-19.0); BLOOD UREA NITROGEN 11 mg/dL (6-24); CALCIUM 7.6 mg/dL (8.5-10.5); CHLORIDE 107 mMol/L (96-110); CO2 29 mMol/L (22-32); CREATININE 0.6 mg/dL (0.5-1.1); ESTIMATED GFR (MDRD EQUATION) > 60; POTASSIUM 3.4 mMol/L (3.7-5.1); SODIUM 144 mMol/L (135-145)
--- NOTE | 2016-08-07 17:16 | NUR ---
Significant Events: Patient is A&Ox3, but makes confused and forgetful statements at times. Patient is a one assist with walker and gaitbelt. Vital signs: HR 50-70's, SBP 100-130's. Patient on and off 1L O2 throughout shift. Patient was up to bathroom and had BM's x5. Miranda in place, with 1625 out. Patient has scattered scabbed and ecchymotic areas, redness in bilateral vin, and redness under right breast. IV's in left hand and left posterior forearm, both SL. Patient had heart cath today, without intervention. Was very drowsy/sedated upon return, but became more A&O within the hour. Patient also had a CT of the chest and abdomen. Continue IV antibiotics. Continue per plan of care.
[2016-08-07 18:06] LABS: ANION GAP 10.3 (10.0-19.0); BLOOD UREA NITROGEN 9 mg/dL (6-24); CALCIUM 7.7 mg/dL (8.5-10.5); CHLORIDE 105 mMol/L (96-110); CO2 32 mMol/L (22-32); CREATININE 0.7 mg/dL (0.5-1.1); ESTIMATED GFR (MDRD EQUATION) > 60; POTASSIUM 3.3 mMol/L (3.7-5.1); SODIUM 144 mMol/L (135-145)
[2016-08-07] MEDS ORDERED: PLAVIX75 MG PO (19:50)
[2016-08-07] MEDS ORDERED: FLORASTOR250 MG PO (19:54)
[2016-08-07] MEDS ORDERED: LEVAQUIN500 MG PO (20:00)
[2016-08-07] MEDS ORDERED: DELTASONE20 MG PO (20:01)
[2016-08-07] MEDS ORDERED: DELTASONE10 MG PO (20:02)
[2016-08-07] MEDS ORDERED: DELTASONE5 MG PO ×2 (20:03)
== END 2016-08-07 20:20 | disposition disaster alternative care site (69) | DRG 280 ==
LOC: GPCU 01:44
PROVIDERS: Family Medicine; Internal Medicine Interventional Cardiology; ADMIT Internal Medicine
DX: I21.4 Non-ST elevation (NSTEMI) myocardial infarction (principal); J96.01 Acute respiratory failure with hypoxia; G93.40 Encephalopathy, unspecified; I50.33 Acute on chronic diastolic (congestive) heart failure; J44.1 Chronic obstructive pulmonary disease with (acute) exacerbation; E11.9 Type 2 diabetes mellitus without complications; E78.5 Hyperlipidemia, unspecified; E87.6 Hypokalemia; I11.0 Hypertensive heart disease with heart failure; I25.10 Atherosclerotic heart disease of native coronary artery without angina pectoris; K04.7 Periapical abscess without sinus; M54.5 Low back pain; Z90.49 Acquired absence of other specified parts of digestive tract; I24.9 Acute ischemic heart disease, unspecified; I25.2 Old myocardial infarction; K80.20 Calculus of gallbladder without cholecystitis without obstruction; Z79.891 Long term (current) use of opiate analgesic; Z99.81 Dependence on supplemental oxygen; F17.210 Nicotine dependence, cigarettes, uncomplicated
CPT/HCPCS: A9270; G0480; J0295; J1644; J1940; J1956; J2250; J2405; J2930; J3010; J7030; J7050; J7512; J7612; Q9967